=== PATIENT | male | born 1950 | race Caucasian/White ===

== ENCOUNTER 2018-10-08 20:28 | Emergency (ER) | payer MEDICARE ==
--- NOTE | 2018-10-08 20:34 | ED Physician Documentation ---
Chest Pain - HISTORIAN Historian: patient - HPI Stated Complaint: chest pain Chief Complaint: Chest Pain Onset: minutes (30) Timing: sudden onset Duration: constant Last known Well Date: 10/08/18 Last Known Well Time: 20:00 Context: emotional upset Severity: mild Quality: sharp (radiates to right chest ). denies: like prior NJ Chest Pain Radiation: no radiation Chest Pain Signs/Symptoms: denies: nausea, vomiting, diaphoresis, dizziness, dyspnea, tachycardia, hypotension, palpitations Relieved By: nothing Further Comments: yes (He states he did eat one hour ago and he states now he has chest pain that is moving over to the right side of his chest. He denies any Nausea. No sweating, no shortness of breath. He has had a NJ in the past and states this is not the same feeling. He does report pain with touch to chest and right chest wall. He has not tried any OTC meds. He does however state he has taken nitro with no aide in pain. He denies any palpatations. He denies any history of GERD. He does state he has had anxiety in the past that does feel similar - he has had what he calls anxiety attacks "a few" in the past and he feels this all started with an "anxiety attack") - ROS CONST: none NEURO/PSYCH: anxiety. denies: headache, fainting, depression - PAST HX NJ risk factors: AMI GI disease: none Lung disease: none Immunizations: UTD - SOCIAL HX Smoking History: non-smoker Alcohol Use: none Drug Use: none - FAMILY HX Family HX: none - REVIEWED ASSESSMENTS Nursing Assessment Reviewed: Yes Vitals Reviewed: Yes Progress - Progress Progress: 2100: no change in painDG ED Results Lab/Radiology - Radiology Radiology Impressions: PA and lateral chest CLINICAL HISTORY: Palpitations. Chest pressure. FINDINGS: Examination of the chest PA and lateral views with no prior film for comparison demonstrates patchy infiltrate in right base. Left lung is clear. Cardiovascular and mediastinal silhouettes are within normal limits. Monitor leads superimpose the chest. IMPRESSION: Right basilar infiltrate. Electronically signed on Oct 08, 2018 9:23:01 PM HYDRAULIC PRESS OPERATOR by: Madhav Corbin Chest Pain Physical Exam - EXAM General Appearance: no acute distress, alert EENT: eye inspection normal, ENT inspection normal Neck: subcutaneous emphysema Respiratory: no resp. distress, chest non-tender, nml breath sounds CVS: reg. rate & rhythm, no murmur, other (pain with palpation mid to right chest wall ) Abdomen: soft, normal bowel sounds, no distension, non-tender Skin: warm/dry, normal color Extremities: non-tender Neuro: oriented X3 Discharge Clincal Impression: Anxiety Chest pain Qualifiers: Chest pain type: other chest pain Qualified Code(s): R07.89 - Other chest pain; R07.8 - Other chest pain Pneumonia Qualifiers: Pneumonia type: due to unspecified organism Laterality: bilateral Lung location: lower lobe of lung Qualified Code(s): J18.1 - Lobar pneumonia, unspecified organism Referrals: Primary Doctor,No [Primary Care Provider] - 2 Days Comments: 1. Ativan 0.5 mg take 1 by mouth every 8 hours as needed for anxiety 2. Azithromycin 250 mg take 1 by mouth daily x 4 days 3. Increase fluids 4. See PCP in 2-4 days 5. Return to ER for any change or increase in symptoms Condition: Stable Disposition: 01 HOME, SELF-CARE Decision to Admit: NO Date of Decison to Admit: 10/08/18 Decision Time: 21:41
[2018-10-08] MEDS ORDERED: ASPIRIN 81 MG CHEW TAB PO ONE (20:36)
[2018-10-08] MEDS ORDERED: MAG HYDROX/ALUMINUM HYD/SIMETH 30 ML, Lidocaine 2%Visc 15ml 20 MG, PHENobarb/HYOSCY/ATR... PO ONE ×3 (20:37)
[2018-10-08] MEDS ORDERED: 0.9 % SODIUM CHLORIDE 1,000 ML IV ONE (20:37)
[2018-10-08] MEDS ORDERED: MAGNESIUM, ALUMINUM HYDROXIDE 30 ML UDC PO ONE (20:42)
[2018-10-08] MEDS ORDERED: LIDOCAINE HCL 2% VISC. ORAL 300MG/15ML UDC ONE (20:42)
[2018-10-08] MEDS ORDERED: LORazepam 1 MG TABLET PO ONE (21:22)
[2018-10-08] MEDS ORDERED: AZITHROMYCIN 250 MG TABLET PO ONE (21:29)
[2018-10-08] MEDS ORDERED: AZITHROMYCIN 1 GM PACKET PO ONE (21:29)
--- NOTE | 2018-10-08 21:39 | Diagnostic Imaging Report ---
KISHA MAGAÑA [facility] [address] [facility] [address] [place], [place]. 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 Chest pressure. FINDINGS: Examination of the chest PA and lateral views with no prior film for comparison demonstrates patchy infiltrate in right base. Left lung is clear. Cardiovascular and mediastinal silhouettes are within normal limits. Monitor leads superimpose the chest. IMPRESSION: Right basilar infiltrate. Electronically signed on Oct 08, 2018 9:23:01 PM QUALIFIED CRAFT WORKER ELECTRICIAN by: Madhav ZIMMERMAN
[2018-10-08 22:03] VITALS: BP 139/63
[2018-10-09 07:16] LABS: EOSINOPHILS % 2.9 % (0.0-6.8); MEAN CORPUSCULAR HEMOGLOBIN 29.4 pg (28.0-34.0); eGFR (Non-African) > 60
[2018-10-09 07:17] LABS: BASOPHILS % 0.5 (0.0-1.5); NEUTROPHILS # 3.1 # k/uL (1.4-7.7)
== END 2018-10-08 21:55 | disposition home or self-care (01) ==
LOC: ED 20:28
DX: F41.9 Anxiety disorder, unspecified (principal); R07.9 Chest pain, unspecified; J18.1 Lobar pneumonia, unspecified organism
CPT/HCPCS: 36415; 71046; 80053; 84484; 85025; 93005; 96365; 99284; 99285; A9270; J7030; S1016